=== PATIENT | female | born 1995 | race Two or more races ===

== ENCOUNTER 2025-09-13 15:13 | Emergency (ER) | payer MEDICAID, SELFPAY ==
[2025-09-13 15:22] VITALS: BP 123/85; PULSE 109; RESP 20; TEMP 36.5; O2SAT 95
--- NOTE | 2025-09-13 15:26 | XR_ITS ---
Examination: CT abdomen with intravenous contrast CT pelvis with intravenous contrast 2-D coronal reconstructions 2-D sagittal reconstructions Date and time of exam: September 13, 2025, 1942 hours INDICATIONS: Lower abdominal pain pelvic pain today COMPARISON: August 16, 2014. CTDI: vol (mGy) 19.7 DLP: (mGycm) 1256 Technique: Multiple axial sections of the abdomen and pelvis have been obtained. 64 slice high-resolution scanner used. 3 mm axial sections have been obtained, post intravenous injection 60 cc [id number] 2-D sagittal, coronal reconstructions obtained. Low dose protocols were performed. One or more of the following dose reduction techniques were used; automated exposure control, adjustment of the mA and/or KV according to patient size, use of iterative reconstruction technique. Findings: Severe fatty infiltration throughout the liver Absent gallbladder No biliary tract dilatation Pancreas is not enlarged Normal-appearing spleen Normal adrenal glands No renal or ureteral calculi Aorta normal size 10 mm fat-containing umbilical hernia Normal appendix No bowel obstruction No pelvic mass Bladder intact Intact osseous structures IMPRESSION: Severe fatty infiltration throughout the liver No renal or ureteral calculi, no hydronephrosis Normal appendix No bowel obstruction diverticulitis or free air Consider pelvic sonography follow-up
--- NOTE | 2025-09-13 15:32 | EDNOTE_ITS ---
ED Abdominal Pain RME/HPI General Chief Complaint: Abdominal Pain Stated complaint: Lower abdominal pain X 2 days Time seen by provider: 09/13/25 15:15 Arrival date/time: 09/13/25 15:13 30-year-old female with a history of [id number] diabetes not on any medications reports with complaints of sudden onset of lower abdominal pain that began last evening. Patient states she was evaluated by her primary care provider who sent her to the emergency room concern for appendicitis. Patient dysuria urinary urgency hematuria, vaginal irritation vaginal discharge pelvic pain or abnormal menses, nausea vomiting diarrhea constipation blood or mucus in stools fever or chills. Patient does have urinary frequency and urinary incontinence x 1. Patient reports not taking any medications for symptom Limitations: no limitations Related Data Home Medications ?Medication ?Instructions ?Recorded ?Confirmed Vitamin * 1 tab PO QDAY #0 tabs 10/28/20 Previous Rx's ?Medication ?Instructions ?Recorded docusate sodium 100 mg capsule 100 mg PO BID #60 caps 10/28/20 (Colace) ibuprofen 800 mg tablet 800 mg PO Q6H pain #120 tabs 10/28/20 Allergies Allergy/AdvReac Type Severity Reaction Status Date / Time No Known Allergies Allergy Verified 09/13/25 15:18 Review of Systems Constitutional Constitutional: Denies chills and Denies fever(s) Cardiovascular Cardiovascular: Denies chest pain and Denies dyspnea Respiratory Respiratory: Denies cough and Denies dyspnea Gastrointestinal Gastrointestinal: Reports abdominal pain, Denies loose stools, Denies melena, Denies nausea and Denies vomiting Genitourinary Genitourinary: Denies abnormal menses, Denies difficulty voiding, Denies dysuria, Denies pelvic pain, Reports post void dribbling, Reports urinary incontinence and Reports other (Urinary frequency) Past Medical History Past Medical History NEUROLOGIC: Negative Neurological Disorders CARDIAC: Negative Cardiac Disorders or Congestive Heart Failure RESPIRATORY: Negative Chronic Obstructive Pulmonary Disease (COPD) GASTROINTESTINAL: Negative Gastrointestinal Disorders or Hepatitis GENITOURINARY: Negative Genitourinary Disorders or Renal Disease REPRODUCTIVE: Positive Previous Pregnancies; Negative Endometriosis, Genital Herpes, Gonorrhea, Pelvic Inflammatory Disease, Syphilis or Uterine Prolapse MUSCULOSKELETAL: Negative Musculoskeletal Disorders ENDOCRINE: Negative Endocrine Disorders, Diabetes Mellitus Type 1 or Diabetes Mellitus Type 2 HEMATOLOGIC: Positive Blood Disorders and Anemia (during .) OTHER HISTORY: Positive Hospitalization; Negative Autoimmune Disease, Down Syndrome, Developmental Delay, Shingles, Falls, Anesthesia Reactions, MRSA, VRSA, Vancomycin-Resistant Enterococci, Human Immunodeficiency Virus (HIV), Chicken Pox, Measles, Mumps, Rubella (Citizen [place] Measles), Pertussis, Clostridium Difficile or Cancer Family History FAMILY HISTORY: Positive Family Cancer (paternal grandmother- breast ca.); Negative Family Psychiatric Problems, Family Respiratory Disorders, Family Cardiac Disorders, Family Gastrointestinal Problems, Family Surgery or Family Anesthesia Reaction Surgical History SURGICAL: Negative Section Social History SMOKING STATUS: Never smoker SECOND HAND EXPOSURE: No ED Exam General Limitations: Present no limitations General appearance: Present alert and in no apparent distress Chest Chest inspection: Present normal inspection and symmetric chest wall rise Respiratory Respiratory exam: Present normal lung sounds bilaterally Cardiovascular Cardiovascular exam: Present regular rate, normal rhythm and normal heart sounds Abdominal Exam Abdominal exam: Present soft and normal bowel sounds Extremities Exam Extremities exam: Present normal inspection and full ROM Back Exam Back exam: Present normal inspection and full ROM Neurological Exam Neurological exam: Present alert, oriented X3 and CN II-XII intact Psychiatric Psychiatric exam: Present normal affect and normal mood Skin Skin exam: Present warm, dry, intact and normal color Course Course Course Narrative: 30-year-old female with a history of [id number] diabetes reports with complaints of abdominal pain. Patient CMP significant for mildly elevated glucose but otherwise unremarkable hCG is negative urinalysis is also negative CBC is negative CT of abdomen shows fatty liver and a small and incarcerated umbilical hernia. Differential diagnosis includes uncontrolled diabetes versus gastritis versus gastroenteritis. Patient is stable nontoxic-appearing with stable vital signs she will be discharged home with a referral to her primary care provider for diabetes and weight management Quality Measures none Orders Category Date Time Status CT Screening NOW Care 09/13/25 15:[address] abdomen pelvis w con Stat Exams 09/13/25 15:26 Completed CBC Stat Lab 09/13/25 15:33 Completed CMP [Comprehensive Metabolic Panel] Stat Lab 09/13/25 15:33 Completed Chlamydia/GC/TV - PCR Stat Lab 09/13/25 16:33 Received HCG,Qualitative Serum Stat Lab 09/13/25 15:33 Completed UA, C/S IF [Urinalysis, C/S if Indicated] Stat Lab 09/13/25 16:33 Completed Vital Signs Vital signs: Vital Signs Temperature 97.7 F 09/13/25 15:22 Pulse Rate 109 H 09/13/25 15:22 Respiratory Rate 20 09/13/25 15:22 Blood Pressure 123/85 H 09/13/25 15:22 Pulse Oximetry (%) 95 09/13/25 15:22 Oxygen Delivery Method Room Air 09/13/25 15:22 Abdominal Pain MDM Patient data External records reviewed:: None Clinical information provided by:: patient Social determinants that could affect healthcare access:: none Patient has the following chronic illnesses:: DM How is presenting disease/condition affected by chronic disease/condition?: exacerbated by Evaluation data The following diagnostics were reviewed and interpreted by me:: lab results and radiology exam(s) Lab and/or radiology exams considered but not ordered:: none Interpretation Summary: The STUDY DIRECTOR indicates elevated glucose and CT indicates fatty liver and small umbilical hernia otherwise unremarkable Medications / Prescriptions Medications or Prescriptions considered but not ordered:: None Medication administrations:: None Consultations Consultation(s) initiated? (list below): No Diagnosis Differential diagnosis abdominal pain: abdominal pain, gastroenteritis and pancreatitis Most likely diagnosis given after review of the tests above:: Abdominal pain and diabetes Admission Indicated Admission indicated?: not indicated Admission Request Was there a request for admission?: No Disposition Plan Disposition Plan: Discharge Discharge Attestation Discharge Attestation: The patient and all family members were given an opportunity to ask questions and understood the discharge instructions. Discharge instructions specifically effects, indications for sooner follow up or return to the emergency department, and the expected course of current diagnosis. Patient condition: Stable Discharge Plan Plan Patient Disposition: HOME (Self Care) Prescriptions/Referrals Prescriptions/Med Rec: No Action Vitamin * 1 EACH tablet 1 tab PO QDAY Qty: 0 docusate sodium [Colace] 100 mg capsule 100 mg PO BID Qty: 60 0RF ibuprofen 800 mg tablet 800 mg PO Q6H MDD 4 Qty: 120 0RF Referrals: Josh Saunders MD [Primary Care Provider, Family Practice] - In 1 week Problem List Clinical Impression: Abdominal pain, Diabetes mellitus Patient/Caregiver Discharge Instructions Discharge Activity: activity as tolerated Education Materials: Abdominal Pain, ED Diet: Diabetes Additional Instructions: follow up with your PCP for further evaluation and treatment of your diabetes Print Language: Stateless Stand Alone Forms: [employer] Award Info., Patient Portal Info Letter
[2025-09-13 15:47] LABS: Basophils # (Auto) 0.0 Thou/mm3 (0.0-0.2); Basophils % (Auto) 0 % (0-2.5); Eosinophils # (Auto) 0.1 Thou/mm3 (0.0-0.5); Eosinophils % (Auto) 1 % (0-10); Hematocrit 41.5 % (36.0-46.0); Hemoglobin 13.6 g/dL (12.0-16.0); Immature Granulocytes Auto 0.06 Thou/mm3 (0.00-0.00); Lymphocytes # (Auto) 2.8 Thou/mm3 (1.0-4.8); Lymphocytes % (Auto) 25 % (10-50); Mean Corpuscular HGB Conc 32.8 g/dl (31.0-37.0); Mean Corpuscular Hemoglobin 27.3 pg (25.0-35.0); Mean Corpuscular Volume 83 fL (80-100); Monocytes # (Auto) 0.5 Thou/mm3 (0.0-0.8); Monocytes % (Auto) 5 % (0-12); Neutrophils # (Auto) 7.7 Thou/mm3 (1.8-7.7); Neutrophils % (Auto) 69 % (37-80); Nucleated Red Blood Cell # 0.00 Thou/mm3 (0.00-0.00); Nucleated Red Blood Cell % 0 /100 WBC (0); Platelet Count 398 Thou/mm3 (140-440); RDW Standard Deviation 41.1 fL (36.4-46.3); Red Blood Count 4.99 Miln/mm3 (4.00-5.20); White Blood Count 11.2 Thou/mm3 (3.6-11.0)
[2025-09-13 16:05] LABS: Alanine Aminotransferase 58 U/L (10-49); Albumin, Serum 4.8 gm/dL (3.5-5.0); Albumin/Globulin Ratio 1.5 (1.2-2.2); Alkaline Phosphatase 122 U/L (46-116); Anion Gap 11 (7-16); Aspartate Amino Transferase 62 U/L (0-34); BUN/Creatinine Ratio 14 Ratio (12-20); Bilirubin,Total 0.4 mg/dL (0.3-1.2); Blood Urea Nitrogen 10 mg/dL (9-23); Calcium 9.3 mg/dL (8.3-10.6); Calcium (Corrected) 9.3 mg/dL (8.5-10.1); Carbon Dioxide 25.9 mMol/L (20.0-31.0); Chloride 101 mMol/L (98-107); Creatinine (Component) 0.7 mg/dL (0.6-1.3); Globulin 3.1 gm/dL (2.3-3.5); Glucose 215 mg/dL (74-106); Osmolality,Calculated 280 (275-295); Potassium 4.1 mMol/L (3.4-5.1); Sodium 138 mMol/L (136-145); Total Protein 7.9 gm/dL (5.7-8.2); eGFR > 60 See Note
[2025-09-13 16:13] LABS: HCG,Qualitative Serum Negative
[2025-09-13 16:39] LABS: Collection Type, Urine Clean Catch
[2025-09-13 16:57] LABS: Bacteria,Urine Rare; Bilirubin,Urine Negative (Negative); Blood,Urine Trace (Negative); Clarity,Urine Clear (Clear/Hazy); Color,Urine Yellow (Lt Yel-Yel); Culture Indicated,Urine Not Indicated; Glucose, Urine Negative (Negative); Ketones,Urine Negative (Negative); Leukocyte Esterase,Urine Negative (Negative); Nitrite,Urine Negative (Negative); PH,Urine 6.0 (5.0-7.0); Protein,Urine Negative (Neg - Trace); RBC,Urine 3 /hpf (0-3); Specific Gravity,Urine 1.022 (1.001-1.035); Squamous Epithelial Cell,Urine 10 /hpf (0-5); Urobilinogen,Urine Negative mg/dL (0.0-1.0); WBC,Urine 1 /hpf (0-5)
[2025-09-13 18:19] VITALS: BP 115/81; PULSE 91; RESP 18; TEMP 37.2; O2SAT 96
[2025-09-14 10:22] LABS: Chlamydia trachomatis PCR Negative (Not Detect); Neisseria Gonorrhoeae DNA PCR Negative (Not Detect); Trichomonas Negative (Negative)
== END 2025-09-13 21:54 | disposition home or self-care (01) ==
PROVIDERS: Physician Assistant; Emergency Provider Emergency Medicine; PCP Family Medicine
DX: R10.9 Unspecified abdominal pain (principal); E11.65 Type 2 diabetes mellitus with hyperglycemia; K42.9 Umbilical hernia without obstruction or gangrene; K59.00 Constipation, unspecified; R32 Unspecified urinary incontinence; Z79.84 Long term (current) use of oral hypoglycemic drugs
CPT/HCPCS: 36415; 74177; 80053; 81001; 84703; 85025; 87491; 87591; 87661; 99284; A4649; Q9967